=== PATIENT | male | born 1945 | race Caucasian/White ===

== ENCOUNTER 2018-07-26 05:14 | Day surgery (SDC) ==
--- NOTE | 2018-07-19 13:06 | EKG Report ---
Test Performed on : 07/19/2018 12:44:49 PM Test Reason : pat Blood Pressure : / mmHG Vent. Rate : 053 BPM Atrial Rate : 053 BPM P-R Int : 188 ms QRS Dur : 090 ms QT Int : 426 ms P-R-T Axes : 070 -17 -29 degrees QTc Int : 399 ms Sinus bradycardia. Nonspecific T wave abnormality Abnormal ECG No previous ECGs available Confirmed by Shine GRIFFIN, Alexander Rivas ([id number]) on 07/20/2018 9:06:25 AM
[2018-07-19 13:20] LABS: HEMATOCRIT 42.7 % (42.0-52.0); HEMOGLOBIN 14.7 g/dL (14.0-18.0); MCH 29.8 PG (27-31); MCHC 34.4 g/dL (33-37); MCV 86.4 FL (81-99); MPV 9.7 FL (7.4-10.4); RBC 4.94 XMIL (4.7-6.1); RDW 12.6 % (11.5-14.5); WBC 5.81 X1000 (4.8-10.8)
[2018-07-19 13:31] LABS: CALCIUM 9.1 mg/dL (8.8-10.2); CREATININE 1.4 mg/dL (0.7-1.2)
[2018-07-26] MEDS ORDERED: LR 1,000 ML ONE ×3 (05:37→13:26)
[2018-07-26] MEDS ORDERED: KEFZOL 1 GM/D5W 2 GM/100 ML IVPB ONE (05:37)
[2018-07-26] MEDS ORDERED: B & O 15A SUPP ONE (06:27)
[2018-07-26] MEDS ORDERED: MARCAINE 0.25% PF/EPI 1:200,000 ONE (06:27)
[2018-07-26] MEDS ORDERED: DIPRIVAN 1% ONE (06:31)
[2018-07-26] MEDS ORDERED: XYLOCAINE-MPF 2% ONE (07:05)
[2018-07-26] MEDS ORDERED: ZEMURON ONE ×2 (07:05→12:14)
[2018-07-26] MEDS ORDERED: DECADRON ONE (07:05)
[2018-07-26] MEDS ORDERED: ZOFRAN ONE (07:05)
[2018-07-26] MEDS ORDERED: QUELICIN (DOSE) ONE (07:05)
[2018-07-26] MEDS ORDERED: OFIRMEV 1000 MG/ISOTONIC SOLN 1,000 MG/100 ML BOTTLE ONE (07:05)
[2018-07-26 09:10] LABS: URINE SOURCE CATH
[2018-07-26 09:16] LABS: BILIRUBIN URINE NEGATIVE (NEGATIVE); BLOOD URINE TRACE (NEGATIVE); COLOR YELLOW; GLUCOSE URINE NEGATIVE (NEGATIVE); KETONE URINE NEGATIVE (NEGATIVE); LEUKOCYTES URINE LARGE (NEGATIVE); NITRITE URINE POSITIVE (NEGATIVE); PROTEIN URINE NEGATIVE (NEGATIVE); SP GRAVITY URINE 1.006; TURBIDITY URINE HAZY (CLEAR); UROBILINOGEN URINE NORMAL (NORMAL)
[2018-07-26 09:18] LABS: UR EPITHELIAL CELLS <10 /HPF (<10); URINE BACTERIA 3+ /HPF; URINE RBC <10 /HPF (<10); URINE WBC TNTC /HPF (<10)
[2018-07-26] MEDS ORDERED: AK-FLUOR ONE (10:03)
[2018-07-26] MEDS ORDERED: ROBINUL ONE (12:13)
[2018-07-26] MEDS ORDERED: NEOSTIGMINE ONE (12:14)
[2018-07-26] MEDS ORDERED: FENTANYL ONE (12:29)
[2018-07-26] MEDS ORDERED: MORPHINE IV PRN (15:05)
[2018-07-26] MEDS ORDERED: BENADRYL LIQUID PO PRN (15:15)
[2018-07-26] MEDS ORDERED: LR 1,000 ML IV SCH (15:15)
[2018-07-26] MEDS ORDERED: SODIUM CHLORIDE 0.9% INJ PRN (15:15)
[2018-07-26] MEDS ORDERED: LABETALOL IV PRN (15:15)
[2018-07-26] MEDS ORDERED: OFIRMEV 1000 MG/ISOTONIC SOLN 1,000 MG/100 ML BOTTLE IV PRN (15:15)
[2018-07-26] MEDS ORDERED: OXY IR PO PRN ×2 (15:15)
[2018-07-26] MEDS ORDERED: PHENERGAN IV PRN (15:15)
[2018-07-26] MEDS: KEFZOL 1 GM/D5W 1 GM/50 ML IVPB IV SCH ×3 (15:33→23:03)
--- NOTE | 2018-07-26 19:07 | OPERATIVE NOTE ---
PROCEDURE DATE: 07/26/2018 SURGEON: Shemar Dudley MD PREOPERATIVE DIAGNOSIS: Prostate cancer. POSTOPERATIVE DIAGNOSIS: 1. Prostate cancer. 2. Large right inguinal hernia. PROCEDURE PERFORMED: Laparoscopic robot-assisted radical retropubic prostatectomy. ANESTHESIA: General endotracheal. FINDINGS: An enlarged prostate with a large nodule at the left base and mid area. There was a large right direct inguinal hernia. It could not be reduced. INDICATION FOR PROCEDURE: This 73-year-old male has a history of elevated PSA. Transrectal prostate ultrasound and biopsies revealed adenocarcinoma, [place] grade 3 + 3 in most of the left side cores and 2 of 6 of the right side cores. DESCRIPTION OF PROCEDURE: After informed consent was obtained from the patient, him receiving IV antibiotics, he was taken the main OR and placed in the supine position. General endotracheal anesthesia was achieved. He was then placed in the low lithotomy position and prepped and draped in the usual sterile fashion for abdominal, penile and perineal surgery. A 18-[place] Reeves catheter was passed the patient's urethra, prostate, and in the bladder. 10 mL sterile water placed Reeves's balloon. Reeves was placed to gravity drain. Pneumoperitoneum was achieved with the Veress needle by placing it through the umbilicus. The water drop test revealed the needle to be in the proper position. The CO2 was attached and the abdomen was insufflated to 15 cm of water. After the abdomen was inflated, the Veress needle was removed. An incision was made above the umbilicus for a distance of 3 cm. The Visiport was used to place a 12 mm camera port. After it was placed, the camera was placed and robot trocars were placed in the standard position with the #4 arm on the right side. The #1 arm was placed lateral to the camera port 1 handbreadth at the umbilicus. The 4th arm was placed 1 handbreadth lateral to the #1 arm. The #2 arm was placed a handbreadth and a half on the left side of the abdomen about the umbilicus level. The health care assistant port was placed in the left epigastric area about 1 handbreadth off of the midline. The table was lowered all the way down and placed in steep Trendelenburg. The robot was docked. The procedure was started by taking down extensive adhesions that appeared physiologic of the left and right colon. The attention was then turned to the rectal area. The 4th arm was used to replace rectum on traction. An incision was made in the peritoneum as it reflected off of the rectum about 1 cm above. This incision was made the width of the rectum. This was dissected through a lot of adipose tissue to where the seminal vesicles were visualized. The seminal vesicles were sharply dissected free. The vas deferens was visualized and incised. The pedicle to the seminal vesicle was taken down with a clip and the seminal vesicle was dissected free all the way back to the base of the prostate. Both sides were accomplished similarly. A small incision in Denonvilliers fascia was made in the midline and dissected laterally for a short distance on each side. Attention was then turned to the anterior abdominal wall. An incision was made medial to the right internal ring and the dissection was started up on the anterior wall but a large amount of adipose tissue was encountered. A small incision was made medial to the left internal ring and this was able to be taken all the way up onto the anterior abdominal wall. On the right side above this large amount of adipose tissue, an incision was made and the bladder was able to be dropped off the anterior abdominal wall. The large amount of adipose tissue was in fact small bowel going into the direct right inguinal hernia. This could not be reduced and this was retracted out of the way with the 4th arm. The endopelvic fascia was cleaned off of all adipose tissue. An incision was made lateral to the prostate through the endopelvic fascia and this incision was taken down to the base of the prostate and up to the puboprostatic ligament. The levator ani muscles were bluntly pushed off the sides of the prostate as best as possible. Both sides were accomplished similarly. The puboprostatic ligaments were taken down sharply on each side. A 0 V-Loc suture was then passed beneath the dorsal vein complex through the eye of the tail and pulled tight. The needle was then passed back under the dorsal vein complex and then through the periosteum of the pubis, back under the dorsal vein complex, and back through the periosteum of the pubis. Tension was placed on this to secure the dorsal vein complex. Attention was then turned to the bladder neck area where the bladder tissue was incised and sharply dissected off the base of the prostate. The bladder was entered and the Reeves catheter was visualized. The Reeves catheter was then brought up through the cystotomy and the 4th arm was used to grasp the Reeves. Tension was placed on the Reeves to act as a traction device. The bladder was then sharply dissected off the remaining part of the base of the prostate. The left side was much more prominent than the right side and a part of the lateral prostate lobe was incised. A portion of this was sent for frozen section to confirm that there was prostate tissue there and the left side was then completely resected and sent to Pathology in the same container as the main specimen. The bladder again was dissected off the base of the prostate. At the very lower portion, the bladder was entered and the lower portion was dissected down to the previously dissected space of the seminal vesicles. After the bladder was completely freed from the base of the prostate, a running suture of 2-0 Vicryl was used to close the buttonhole in the bladder. The prostate pedicles were taken down on each side with clips. The prostate was very large and the adipose tissue was very thick and multiple clips were used to take this down completely to the apex of the prostate. Again, both sides were accomplished similarly. Attention was then turned to the apex of the prostate where the portion of the dorsal vein that covered the apex was cauterized with the bipolar cautery. This was incised down to where the urethra was visualized. The urethra was cleaned off on each side and dissected back to the apex of the prostate. This was incised anteriorly. The Reeves catheter was pulled back. The posterior urethra was incised and then the remaining fibers of the posterior rhabdosphincter was incised. The prostate was placed in an EndoCatch retrieval bag which barely fit in the bag. The vesicovisceral fascia was reattached to the posterior rhabdosphincter with a running suture of 3-0 V-Loc. The bladder was anastomosed to the urethra with a running suture of 3-0 V-Loc. The 3-0 V-Loc suture that was used to anastomose the vesicovisceral fascia to the posterior rhabdosphincter, each end was then passed through the periosteum of the pubis. This acted as a urethral suspension. All needles were removed from the abdominal cavity and the needle count was correct. A general surgeon was asked to come into the room to evaluate the large inguinal hernia. He said that would have to be taken care of at a different surgery. Again, it appeared to have small bowel in the hernia. It could be pulled back, but when tension was let go it would immediately go back out into the hernia sac. Surgicel Snow was then packed on each side of the bladder. The robot was undocked. Pneumoperitoneum was resolved. The robot trocars were removed. The patient was then returned to the supine position. The camera port incision was extended to a distance of about 5 cm. The abdominal rectus fascia was incised with the electrocautery in the midline. The specimen was removed and sent to Pathology. A suture marked the bladder neck area. The abdominal rectus fascia was reapproximated with interrupted sutures of #1 Maxon. The skin was reapproximated with clips. Island dressings were placed. He tolerated the procedure well. Estimated blood loss 50 mL. He was extubated and taken to the recovery room in good condition. cc: Shemar Dudley MD
[2018-07-26] MEDS: PERIDEX MT SCH (21:48)
[2018-07-26] MEDS: COLACE PO SCH (21:48)
[2018-07-26] MEDS: PEPCID PO SCH (21:48)
[2018-07-26] MEDS: COMBIGAN OPHTH SOLN BOTH EYES SCH (21:49)
[2018-07-27 06:38] LABS: HEMATOCRIT 39.9 % (42.0-52.0); HEMOGLOBIN 13.6 g/dL (14.0-18.0); MCH 29.7 PG (27-31); MCHC 34.1 g/dL (33-37); MCV 87.1 FL (81-99); RBC 4.58 XMIL (4.7-6.1); RDW 12.7 % (11.5-14.5); WBC 9.94 X1000 (4.8-10.8)
[2018-07-27 07:06] LABS: CALCIUM 8.7 mg/dL (8.8-10.2); CREATININE 1.5 mg/dL (0.7-1.2); POTASSIUM 3.6 mmol/L (3.5-5.1)
[2018-07-27] MEDS: KEFZOL 1 GM/D5W 1 GM/50 ML IVPB IV SCH (07:44)
[2018-07-27] MEDS: PEPCID PO SCH (08:44)
[2018-07-27] MEDS: COLACE PO SCH (08:45)
[2018-07-27] MEDS: PERIDEX MT SCH (08:46)
[2018-07-27] MEDS: COMBIGAN OPHTH SOLN BOTH EYES SCH (08:47)
[2018-07-27] MEDS ORDERED: TEKTURNA PO SCH (09:00)
[2018-07-27] MEDS ORDERED: ZYLOPRIM PO SCH (09:00)
[2018-07-27] MEDS ORDERED: ASPIRIN PO SCH (09:00)
[2018-07-27] MEDS ORDERED: HYDROCHLOROTHIAZIDE PO SCH (09:00)
[2018-07-27] MEDS ORDERED: PATIENT'S OWN MED PO SCH (09:00)
[2018-07-27 15:42] VITALS: BP 122/53
[2018-07-27] MEDS ORDERED: LIPITOR PO SCH (21:00)
== END 2018-07-27 16:14 | disposition home or self-care (01) ==
LOC: OR 05:14 → 4N 05:14 → OR 07-27 16:14
PROVIDERS: ATTEND Urology
CPT/HCPCS: 80048; 81001; 85027; 87077; 87088; 87186; 88305; 88309; 88331; 93005; 93010; 94761; 94799; A9270; J0131; J0330; J0690; J1100; J2405; J3010; J7120; S2900